=== PATIENT | male | born 1935 | race Caucasian/White ===

== ENCOUNTER 2020-07-16 21:00 | Inpatient (IN) | payer MEDICARE, BC ==
[~2020-07-16] VITALS: Ht 177.8 cm; Wt 86.3 kg
--- NOTE | 2020-07-16 21:11 | NUR ---
PT BIBFROM HOME C/O A NEAR SYNCOPAL EPISODE WHILE EATING DINNER W/ FAMILY. PT DENIES ANY HEAD TRAUMA OR FALL. PT AAOX4, VSS, RESPIRATIONS EVEN AND UNLABROED ON RA W/ NAD NOTED. PT CONNECTED TO THE CABLE FERRYBOAT OPERATOR AND POX
--- NOTE | 2020-07-16 21:12 | NUR ---
DR MEZA AT BEDSIDE
[2020-07-16 21:23] LABS: BASOPHILS # (AUTO) 0.1 /CMM (0.0-0.2); BASOPHILS % (AUTO) 0.6 % (0.0-2.0); EOSINOPHILS % (AUTO) 1.5 % (0.0-6.0); HEMATOCRIT 41 % (39-51); HEMOGLOBIN 13.6 g/dL (13.5-17.5); LYMPHOCYTES # (AUTO) 1.5 /CMM (0.8-4.8); LYMPHOCYTES % (AUTO) 16.9 % (20.0-44.0); MEAN CORPUSCULAR HGB CONC 33 g/dl (31.0-36.0); MEAN CORPUSCULAR VOLUME 96 fL (80-96); MONOCYTES # (AUTO) 0.7 /CMM (0.1-1.30); NEUTROPHILS # (AUTO) 6.5 /CMM (1.8-8.9); PLATELET COUNT (AUTO) 150 /CMM (150-450); RED BLOOD CELL COUNT(AUTO) 4.28 MIL/uL (4.5-6.0)
[2020-07-16] MEDS ORDERED: ONDANSETRON HCL/PF 4 MG/2 ML VIAL ONE ×2 (21:23→23:00)
[2020-07-16] MEDS ORDERED: ONDANSETRON HCL/PF 4 MG/2 ML VIAL IVP ONE (21:30)
[2020-07-16] MEDS ORDERED: IV NS 0.9% 500 ML BAG IV ONE (21:30)
--- NOTE | 2020-07-16 21:50 | NUR ---
DR CALERO AT BEDSIDE
[2020-07-16 21:54] LABS: ALANINE AMINOTRANSFERASE 38 U/L (12-78); ALBUMIN 3.2 g/dL (3.4-5.0); ALKALINE PHOSPHATASE 51 U/L (46-116); ASPARTATE AMINOTRANSFERASE 25 U/L (15-37); BILIRUBIN,DIRECT 0.2 mg/dL (0.0-0.2); BILIRUBIN,TOTAL 0.9 mg/dL (0.2-1.0); CARBON DIOXIDE 28 mmol/L (21-32); CHLORIDE 104 mmol/L (98-107); CREATININE 1.3 mg/dL (0.6-1.3); GLUCOSE 104 mg/dL (74-106); LIPASE 213 U/L (73-393); POTASSIUM 3.9 mmol/L (3.5-5.1); SODIUM SERUM 139 mmol/L (136-145); TOTAL PROTEIN, SERUM 6.9 g/dL (6.4-8.2); UREA NITROGEN, BLOOD 25 mg/dL (7-18)
--- NOTE | 2020-07-16 22:33 | NUR ---
Patient does not wish to proceed with medical care recommended by Dr. Almeida and Terrance. Patient given information related to possible complications, up to and including , which could occur as a result of leaving the hospital at this time. Patient verbalizes understanding of risks involved due to leaving against medical advice. Patient has signed AMA form.
--- NOTE | 2020-07-16 22:45 | NUR ---
UPON DISCHARGE, PER PT'S FAMILY, PT HAD ANOTEHER SYNCOPAL EPISODE NEAR THE HOSPITAL ENTRANCE. PT WAS ASSISTED TO THE GROUND BY FAMILY MEMBER. PT WAS ASSISTED BACK TO THE [facility] AND WHEELED TO ER BED 9. PT LOOKED PALE AND DIAPHORETIC. MD AT BEDSIDE
[2020-07-16] MEDS ORDERED: PRAV40TA PO (23:51)
[2020-07-16] MEDS ORDERED: LISI10TA5 PO (23:51)
--- NOTE | 2020-07-17 00:03 | NUR ---
COVID SWAB COLLECTED AND SENT TO LAB
--- NOTE | 2020-07-17 00:15 | NUR ---
ER TALKING TO LEONIDAS JO REGARDING PT ADMISSION.
--- NOTE | 2020-07-17 00:34 | NUR ---
REPORT GIVEN TO DESIREE CORRALES FOR CARLOS
[2020-07-17] MEDS ORDERED: ONDANSETRON HCL/PF 4 MG/2 ML VIAL IVP PRN (01:00)
[2020-07-17] MEDS ORDERED: MAG HYDROX/AL HYDROX/SIMETH 30 ML UDC PO PRN (01:00)
[2020-07-17] MEDS ORDERED: HYDROCODONE/APAP 5/325MG TABLET PO PRN (01:00)
[2020-07-17] MEDS ORDERED: ACETAMINOPHEN 325 MG TABLET PO PRN (01:00)
[2020-07-17] MEDS ORDERED: IV NS 0.9% 1,000 ML IV PRN (01:00)
[2020-07-17] MEDS ORDERED: MAGNESIUM HYDROXIDE 30 ML UDC PO PRN (01:00)
--- NOTE | 2020-07-17 01:06 | NUR ---
PT TRANSFERRED TO ROOM VIA ACLS PROTOCOL
[2020-07-17 01:10] VITALS: BP 126/66
--- NOTE | 2020-07-17 01:10 | NUR ---
RN NOTES RECEIVED PT. AWAKE ON BED, A/OX4, AMBULATORY , SR ON TELE MONITOR , ADMISSION INSTRUCTIONS RENDERED, BED IN LOCKED POSITION, CALL LIGHT WITHIN REACH, SIDERALUSPX,2 CONTINUE TO MONITOR
[2020-07-17] MEDS ORDERED: IV NS 0.9% 1,000 ML BAG IV ONE (01:30)
[2020-07-17] MEDS ORDERED: MISCELLANEOUS MED 1 EA EA XX ONE (01:30)
[2020-07-17 04:00] VITALS: BP 99/61
[2020-07-17 04:02] VITALS: BP 99/61
--- NOTE | 2020-07-17 06:39 | NUR ---
RN NOTES AWAKE, DENIES PAIN, NO SOB, MORNING CARE RENDERED, CALL LIGHT WITHIN REACJ, TORYUPX2, PT. NEEDS ATTENDED
[2020-07-17 07:15] LABS: BASOPHILS % (AUTO) 0.3 % (0.0-2.0); EOSINOPHILS % (AUTO) 0.4 % (0.0-6.0); HEMATOCRIT 36 % (39-51); HEMOGLOBIN 12.1 g/dL (13.5-17.5); LYMPHOCYTES % (AUTO) 9.5 % (20.0-44.0); MEAN CORPUSCULAR HGB CONC 33 g/dl (31.0-36.0); MEAN CORPUSCULAR VOLUME 96 fL (80-96); MONOCYTES % (AUTO) 9.6 % (2.0-12.0); NEUTROPHILS % (AUTO) 80.2 % (43.0-81.0); PLATELET COUNT (AUTO) 130 /CMM (150-450); RED BLOOD CELL COUNT(AUTO) 3.81 MIL/uL (4.5-6.0)
[2020-07-17 07:30] LABS: ALANINE AMINOTRANSFERASE 30 U/L (12-78); ALBUMIN 2.7 g/dL (3.4-5.0); ALKALINE PHOSPHATASE 43 U/L (46-116); ASPARTATE AMINOTRANSFERASE 19 U/L (15-37); BILIRUBIN,TOTAL 0.9 mg/dL (0.2-1.0); CALCIUM, SERUM 8.1 mg/dL (8.5-10.1); CARBON DIOXIDE 26 mmol/L (21-32); CHLORIDE 109 mmol/L (98-107); CREATININE 1.4 mg/dL (0.6-1.3); GLUCOSE 107 mg/dL (74-106); MAGNESIUM 2.1 mg/dL (1.8-2.4); PHOSPHORUS 3.6 mg/dL (2.5-4.9); POTASSIUM 4.6 mmol/L (3.5-5.1); SODIUM SERUM 142 mmol/L (136-145); TOTAL PROTEIN, SERUM 5.8 g/dL (6.4-8.2); UREA NITROGEN, BLOOD 26 mg/dL (7-18)
--- NOTE | 2020-07-17 07:40 | NUR ---
DAIRY FARM WORKER NOTES PATIENT RECEIVE IN BED, SLEEPING, EASILY AWAKEN BY NAME. ALERT AND ORIENTED X 4. NO SIGNS OF RESPIRATORY DISTRESS PRESENT AT THIS TIME, WITH EVEN NON-LABORED BREATHING AND NO SOB NOTED. ON FROZEN MEAT CUTTER, SINUS DARSHANA, 45. SKIN WARM AND DRY TO TOUCH, IV ACCESS INTACT AND PATENT. PATIENT PRESENTS WITH NO DISCOMFORT OR PAIN AT THIS TIME. SAFETY PRECAUTIONS IMPLEMENTED WITH BED LOCKED, BED IN THE LOWEST POSITION, BILATERAL SIDE RAILS UP, BED ALARM ON AND CALL LIGHT WITHIN EASY REACH OF PATIENT. WILL CONTINUE TO MONITOR PATIENT.
[2020-07-17 08:00] VITALS: BP 99/40
[2020-07-17 08:23] LABS: CHOLESTEROL 104 mg/dL (<200); HDL CHOLESTEROL 54 mg/dL (40-60); LDL 41 mg/dL (0-99); THYROID STIMULATING HORMONE 1.176 uIU/mL (0.358-3.74); TRIGLYCERIDES 52 mg/dL (30-150)
[2020-07-17] MEDS ORDERED: LISINOPRIL (10MG) 10 MG TABLET PO SCH (09:00)
[2020-07-17] MEDS ORDERED: ATORVASTATIN 10 MG TABLET PO SCH (09:00)
[2020-07-17] MEDS ORDERED: ENOXAPARIN SODIUM 40 MG/0.4 ML DISP.SYRIN SQ SCH (09:00)
[2020-07-17] MEDS ORDERED: PRAVASTATIN SODIUM 20 MG TABLET PO SCH (09:00)
--- NOTE | 2020-07-17 14:30 | NUR ---
INFORMATION MANAGEMENT MANAGER NOTES PATIENT REQUESTING TO SPEAK WITH DR GODFREY AND FOLLOW UP ON ECHOCARDIOGRAM RESULTS. PER MD DR GODFREY PATIENT'S MEDICALLY CLEARED TO BE DISCHARGED AND TO FOLLOW UP OUTPATIENT IN TWO WEEKS. INFORMED HOSPITALIST DR CAMPOS PATIENT EAGER TO LEAVE AND CLEARED FOR DISCHARGE FROM FILLING AND STAPLING MACHINE OPERATOR.
[2020-07-17 16:00] VITALS: BP 116/86
--- NOTE | 2020-07-17 16:00 | NUR ---
CONSTRUCTION JOB COST ESTIMATOR NOTES PATIENT AWAKE, ALERT AND ORIENTED X 4. ON ROOM AIR WITH NO SIGNS OF RESPIRATORY DISTRESS, WITH EVEN NON-LABORED BREATHING, AND NO SOB NOTED. PATIENT'S VITAL SIGNS WNL. IV ACCESS REMOVED AND CATHETER TIP INTACT, AND APPLIED PRESSURE TO SITE. ID BAND REMOVED. SKIN ASSESSMENT DONE AND SKIN INTACT. PATIENT ACCOUNTED FOR ALL BELONGINGS. PATIENT PRESENTS WITH NO PAIN OR DISCOMFORT. EXIT CARE PROVIDED TO PATIENT. PATIENT LEFT UNIT VIA WHEELCHAIR, AND LEFT HOSPITAL IN PRIVATE CAR ACCOMPANIED BY .
== END 2020-07-17 15:50 | disposition home or self-care (01) | DRG 640 ==
LOC: ER 21:00 → TELE 07-17 00:44
PROVIDERS: ADMIT Internal Medicine; ATTEND Internal Medicine
DX: E86.0 Dehydration (principal); N17.0 Acute kidney failure with tubular necrosis; R55 Syncope and collapse; E78.00 Pure hypercholesterolemia, unspecified; E78.5 Hyperlipidemia, unspecified; I10 Essential (primary) hypertension; R00.1 Bradycardia, unspecified
CPT/HCPCS: 36415; 70450-TC; 71045-TC; 80048-TC; 80053-TC; 80061-TC; 80076-TC; 83690-TC; 83735-TC; 84100-TC; 84443-TC; 84484-TC; 85025-TC; 87081-TC; 93017-TC; 93307-TC; C9803; G0378; J1650; J2405; J7030; J7040